=== PATIENT | female | born 1980 | race Caucasian/White ===

== ENCOUNTER 2020-02-05 22:07 | Emergency (ER) | payer OTHER ==
[~2020-02-05] VITALS: Ht 160 cm; Wt 86.0 kg
[2020-02-05 22:13] VITALS: BP 136/104
[2020-02-05] MEDS ORDERED: PANT40TA52 (22:23)
[2020-02-05] MEDS ORDERED: VALA500T7 (22:23)
[2020-02-05] MEDS ORDERED: BUPR300T98 (22:23)
[2020-02-05] MEDS ORDERED: LEVO50TA6 (22:23)
[2020-02-05] MEDS ORDERED: FLUO40CA (22:23)
[2020-02-05] MEDS ORDERED: HYDR25TA4 (22:23)
[2020-02-05] MEDS ORDERED: METO-333 (22:23)
[2020-02-05] MEDS ORDERED: BUPIVACAINE 0.5% 30 ML (SENSORCAINE) VIAL INJ ONE (22:30)
[2020-02-05] MEDS ORDERED: methylPREDNISolone 40 MG/ML (DEPO MEDROL) VIAL IA ONE (22:30)
[2020-02-05] MEDS ORDERED: ACHD5005 PO (22:32)
--- NOTE | 2020-02-05 22:33 | ED Hip Pain/Injury ---
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 She has no numbness or tingling. Does not radiate below the hip. 3 produce reproducible with direct palpation. She's not having any saddle anesthesia, incontinence, loss of control of bowel or bladder. She does have a history of spinal fusion of her cervical spine and was told by her surgeon that later she might need surgery on her back. She was hoping to get some spinal manipulation but her chiropractor was closed. She has a history of gastric bypass and does not use NSAIDs. No history of diabetes. Allergies and Home Medications Allergies Coded Allergies: Penicillins (Verified Allergy, Unknown, 02/05/20) aspirin (Verified Allergy, Unknown, 02/05/20) NSAIDS (Non-Steroidal Anti-Inflamma (Verified Adverse Reaction, Unknown, 02/05/20) Home Medications Hydrocodone/Acetaminophen 1 Each Tablet, 1 EACH PO Q6H PRN for PAIN-BREAKTHROUGH Prescribed by: ESTEBAN KIRKPATRICK on 02/05/20 [id number] Patient Home Medication List Home Medication List Reviewed: Yes Review of Systems Constitutional: No chills, No fever EENTM: No ear discharge, No ear pain Respiratory: No cough, No phlegm, No short of breath Cardiovascular: No chest pain, No edema Gastrointestinal: No abdominal pain, No nausea Genitourinary: No discharge, No dysuria Musculoskeletal: see HPI, back pain, joint pain All Other Systems Reviewed Negative Unless Noted: Yes Past Wctwely-Udmved-Qxttyn Hx Patient Social History Alcohol Use: Rarely Uses Recreational Drug Use: No Smoking Status: Never a Smoker 2nd Hand Smoke Exposure: No Recent Foreign Travel: No Contact w/Someone Who Travel: No Recent Hopitalizations: No Immunizations Up To Date Tetanus Booster (TDap): Unknown Seasonal Allergies Seasonal Allergies: No Past Medical History Surgeries: Yes Abdominal, Bowel Surgery, Orthopedic, Tubal Ligation Respiratory: No Cardiac: Yes Hypertension 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 oz. kg; BMI Method: General Appearance: WD/WN, Moderate Distress HEENT: PERRL/EOMI, Pharynx Normal, Moist Mucous Membranes Neck: Full Range of Motion, Normal Inspection Respiratory: No Accessory Muscle Use, No Respiratory Distress Peripheral Pulses: 2+ Dorsalis Pedis (R), 2+ Left Dors-Pedis (L) Back: Other (paraspinous vertebral tenderness on the left side that reproduces her left hip pain.) Extremity: Normal Capillary Refill, Normal Inspection, No Pedal Edema, Other (pain reproduced on straight leg raise test.) Neurologic/Psychiatric: Alert, Oriented x3, No Motor/Sensory Deficits Procedures/Interventions Progress L5-S1 facet joint intra-articular injection of bupivacaine and Depo-Medrol 40 mg. Site was cleaned thoroughly with alcohol and chlorhexidine and using Z track method and a 25-gauge 1-1/2 inch needle we applied a total of 2 cc at the level of the L5-S1 facet joint. Bandage was placed and patient tolerated procedure well. Progress/Results/Core Measures Results/Orders My Orders Orders - ESTEBAN KIRKPATRICK Bupivacaine 0.5% Injection (Sensorcaine (02/05/20 22:30) Methylprednisolone Acetate Inj (Depo-Med (02/05/20 22:30) Medications Given in ED Current Medications Medications Dose Ordered Sig/Nikolas Route Start Time Stop Time Status Last Admin Dose Admin Bupivacaine HCl 30 ml ONCE ONCE INJ 02/05/20 22:30 02/05/20 22:31 DC 02/05/20 22:30 30 ML Methylprednisolone Acetate 40 mg ONCE ONCE IA 02/05/20 22:30 02/05/20 22:31 DC 02/05/20 22:30 40 MG Vital Signs/I&O 02/05/20 02/05/20 22:13 22:30 Temp 36.3 36.3 Pulse 93 Resp 20 B/P (MAP) 136/104 (115) Pulse Ox 96 O2 Delivery Room Air Progress Progress Note : Time: 22:29 Progress Note She has no problem with her left hip joint. Suspect she has lumbar radiculopathy given her history of lumbar degenerative disease. Plan to give her steroid and bupivacaine Depo-Provera shot. We'll give her 6 tablets of hydrocodone to help her get through until she sees her primary care doctor or chiropractor. She is not a candidate for NSAIDs because of her gastric bypass. Departure Impression Primary Impression: Lumbago with sciatica, left side Qualified Codes: M54.42 - Lumbago with sciatica, left side Disposition: HOME, SELF-CARE Condition: Stable Departure-Patient Inst. Decision time for Depature: 22:31 Patient Instructions: Low Back Pain in Adults, Back Stretches on Floor Add. Discharge Instructions: Tylenol. Hydrocodone one tablet every 6 hours as necessary for breakthrough pain. Follow-up with chiropractor, primary care doctor and/or surgeon as necessary. The steroid should kick in over the next day and last about 5-7 days. Because little excess feeling of energy and difficulty sleeping. This is normal and you can use a tablet of Benadryl and melatonin as necessary if you have difficulty sleeping. Continue using topical creams, heating pads alternated with ice and stretching exercises as outlined in the handout. Use your muscle relaxants as prescribed. All discharge instructions reviewed with patient and/or family. Voiced understanding. Scripts Hydrocodone/Acetaminophen (Hydrocodone-Acetamin 5-325 mg) 1 Each Tablet 1 EACH PO Q6H PRN for PAIN-BREAKTHROUGH for 1 Day, #6 TAB 0 Refills Prov: ESTEBAN KIRKPATRICK 02/05/20 Work/School Note: Work Release Form Date Seen in the Emergency Department: N 2019 Return to Work: Feb 08, 2020 Restrictions: No Restrictions ESTEBAN KIRKPATRICK Feb 05, 2020 22:33
== END 2020-02-05 22:43 | disposition home or self-care (01) ==
LOC: ER 22:11
DX: M54.42 Lumbago with sciatica, left side (principal); I10 Essential (primary) hypertension; Z98.84 Bariatric surgery status; Z88.0 Allergy status to penicillin; Z88.6 Allergy status to analgesic agent; Z98.51 Tubal ligation status; X50.1XXA Overexertion from prolonged static or awkward postures, initial encounter
CPT/HCPCS: 99284